=== PATIENT | male | born 1940 | race Hispanic/Latino ===

== ENCOUNTER 2017-04-08 06:45 | Day surgery (SDC) | payer MEDICARE ==
[2017-03-12 09:59] VITALS: BMI 30.4
[2017-04-08 08:04] VITALS: RESP 18
[2017-04-08] MEDS ORDERED: cefTRIAXone (Rocephin) 1 gm Inj ONE (09:00)
[2017-04-08] MEDS ORDERED: Propofol 10 mg/ml Inj (20 ML) ONE (09:00)
[2017-04-08] MEDS ORDERED: Iohexol 240 (50 ml) ONE (09:16)
[2017-04-08] MEDS ORDERED: ePHEDrine 50 mg/ml Inj ONE (09:23)
[2017-04-08] MEDS ORDERED: Lidocaine 2% Jelly (Uro-Jet) TOP ONE (09:55)
[2017-04-08] MEDS ORDERED: HYDROmorphone 0.5 mg/0.5 ml ISec IVP PRN (10:08)
[2017-04-08] MEDS ORDERED: Lidocaine 2% Jelly (Uro-Jet) ONE (10:08)
[2017-04-08] MEDS ORDERED: Lactated Ringer's 1,000 ML IV SCH (10:15)
[2017-04-08 10:19] VITALS: TEMP 97.6
--- NOTE | 2017-04-08 10:50 | RAD ---
PROCEDURE: Retrograde pyelogram HISTORY: R/O OBSTRUCTION COMPARISON: TECHNIQUE: Fluoroscopy was provided in the operating room. 68 seconds of fluoro time were used. Seventeen images submitted FINDINGS: The study shows opacification of both ureters and renal collecting systems. There is no obstruction or filling defect. The procedure was performed by Dr. Maldonado. IMPRESSION: Negative study
[2017-04-08 10:53] VITALS: O2SAT 95
[2017-04-08 13:53] VITALS: BP 130/70; PULSE 56
--- NOTE | 2017-04-08 21:05 | OP ---
PROCEDURE DATE: 04/08/2017 PREOPERATIVE DIAGNOSIS: Bladder tumor. POSTOPERATIVE DIAGNOSIS: Bladder tumor. PROCEDURE: Cystoscopy; transurethral resection of bladder tumor, medium; fulguration of bladder tumor; and bilateral retrograde pyelograms. ATTENDING SURGEON: Jose Maldonado MD ANESTHESIA: General. SPECIMENS: Bladder tumor chips was sent to Pathology. DRAINS: A 20-Ivorian two-way Hay catheter. COMPLICATIONS: There were none. OPERATIVE FINDINGS: After informed consent was obtained, the patient was taken to the operating room and placed on the operating table, and anesthesia was administered. The patient was then placed in a dorsal lithotomy position, prepped and draped in the usual sterile fashion. Cystoscopy was performed. A 21-Ivorian cystoscope was placed in the patient's urethra and advanced proximally under direct vision. In the membranous urethra, there was a stricture, this was able to be bypassed with the scope and dilated, the scope was able to be passed into the bladder and a full survey inspection was performed. There were no stones or foreign bodies noted. At the left bladder neck region, there was a papillary tumor noted and it was encroaching just inside the bladder neck, tumor measured approximately 2.5 cm in area. On the dome, there was noted to be some old tumor which had previously been treated with some possible new growth. Both ureteral orifices were visualized and appeared within normal limits. At this point, the cystoscope was removed and a 26-Ivorian resectoscope with a visualizing obturator was passed. Using a resecting loop, the tumor at the bladder neck region was then resected and sent to Pathology as specimen. After all the visible tumor had been resected, a rollerball electrode was used to cauterize the base of the tumor and achieved complete hemostasis. The rollerball was also used to retreat the area of previously treated tumor by cauterizing any burned-out tumor and area of surrounding normal mucosa. At this point, a final inspection of the bladder was made, there were no remaining untreated tumors. The bladder was copiously irrigated and there was complete hemostasis. At this point, the resectoscope was withdrawn and a 21-Ivorian scope was re-passed. Retrograde pyelogram was then performed by instilling a cone-tip catheter through the cystoscope and placing it first into the left ureteral orifice. During real-time fluoroscopy, contrast was instilled into the system. There were no filling defects or evidence of obstruction noted. At this point, the cone-tip catheter was guided into the right ureteral orifice and a right retrograde pyelogram was performed. The right retrograde pyelogram also appeared grossly within normal limits. At this point, the procedure was complete. Inspection of the resection site revealed complete hemostasis. There were no untreated lesions. At this point, the bladder was drained. The cystoscope was removed and a 20-Ivorian two-way Hay catheter was passed and placed to straight bladder drainage. The films were submitted to Radiology for interpretation. Jose Maldonado MD
== END 2017-04-08 13:55 | disposition home or self-care (01) ==
LOC: SDS 06:45
PROVIDERS: ATTEND Urology
DX: C67.5 Malignant neoplasm of bladder neck (principal); I10 Essential (primary) hypertension; E78.00 Pure hypercholesterolemia, unspecified
CPT/HCPCS: 52005; 52235; 74420; 88307; J0696; J1170; J1885; J2405; J2704; J2765; J3010; J7120 ×2; Q9966

== ENCOUNTER 2018-08-08 11:24 | Outpatient (CLI) | payer MEDICARE | END 2018-08-08 11:25 | disposition home or self-care (01) | LOC: LAB 11:24 ==